=== PATIENT | female | born 1995 | race Caucasian/White ===

== ENCOUNTER → 2023-01-21 | Outpatient (CLI) | payer OTHER, SELFPAY | PROVIDERS: Referring Provider Family Medicine; Visit Provider Family Medicine | DX: Z23 Encounter for immunization (principal) | CPT/HCPCS: 90471; 90686 ==

== ENCOUNTER → 2023-04-24 12:17 | Outpatient (CLI) | payer OTHER, SELFPAY ==
--- NOTE | 2023-04-24 12:21 | DI.US.S_ITS ---
PROCEDURE: US THYROID INDICATIONS: History of Thyroid Cyst TECHNIQUE: Real-time scanning was performed of the thyroid gland, with image documentation. COMPARISON: None. FINDINGS: Right: Thyroid lobe measures 4.8 x 1.0 x 1.8 cm, and is homogeneous in echotexture. Left: Thyroid lobe measures 4.1 x 1.0 x 1.4 cm, and is homogenous in echotexture. Isthmus: 5 cm thick. IMPRESSION: No abnormality is identified on ultrasound. No thyroid cysts. ACR TI-RADS definitions and recommendations: TI-RADS 1 (benign): 0 points. FNA not needed. TI-RADS 2 (not suspicious): 2 points. FNA not needed. TI-RADS 3 (mildly suspicious): 3 points. * FNA if 2.5 cm or larger, follow up if 1.5 cm or larger (at 1, 3, and 5 years). TI-RADS 4 (moderately suspicious): 4-6 points. * FNA if 1.5 cm or larger, follow up if 1 cm or larger (at 1, 2, 3, and 5 years). TI-RADS 5 (highly suspicious): 7 points or more. * FNA if 1 cm or larger, follow up if 0.5 cm or larger (every year for 5 years). Dictated by: Ramez Metzger M.D. on 04/24/2023 at 15:41 Approved by: Ramez Metzger M.D. on 04/24/2023 at 15:43
== END ==
LOC: US 12:19
PROVIDERS: PCP Student in an Organized Health Care Education/Training Program; Referring Provider Specialist; Visit Provider Specialist
DX: Z86.39 Personal history of other endocrine, nutritional and metabolic disease (principal); Z09 Encounter for follow-up examination after completed treatment for conditions other than malignant neoplasm
CPT/HCPCS: 76536

== ENCOUNTER → 2023-04-25 11:44 | Outpatient (CLI) | payer OTHER, SELFPAY ==
[2023-04-25 13:38] LABS: Free T4, Direct Thyroxine 0.95 ng/dL (0.78-2.19)
[2023-04-25 13:52] LABS: Thyroid Stimulating Hormone 2.38 uIU/mL (0.47-4.68)
== END ==
PROVIDERS: PCP Student in an Organized Health Care Education/Training Program; Referring Provider Specialist; Visit Provider Specialist
DX: Z86.39 Personal history of other endocrine, nutritional and metabolic disease (principal)
CPT/HCPCS: 36415; 84439; 84443

== ENCOUNTER → 2023-05-12 07:40 | Outpatient (CLI) | payer OTHER, SELFPAY ==
--- NOTE | 2023-05-12 07:42 | DI.RAD.S_ITS ---
PROCEDURE: XR LUMBAR SPINE MIN 4V INDICATIONS: low back pain TECHNIQUE: 5 views of the lumbar spine were acquired, including bilateral oblique views. COMPARISON: None. FINDINGS: Bones: 5 nonrib-bearing vertebrae are present. Grade 1 anterolisthesis of L4 on L5 by approximately 5 mm. No vertebral body compression fractures. No suspicious bony lesions. No significant degenerative changes. Soft tissues: Overlying bowel gas pattern is normal. No suspicious soft tissue calcifications. Oblique images: Bilateral L4-L5 pars interarticularis defect. IMPRESSION: Bilateral L4-L5 pars interarticularis defect and Grade 1 anterolisthesis of L4 on L5. Approved by: Saira Chapman M.D. on 05/12/2023 at 9:06
== END ==
PROVIDERS: PCP Student in an Organized Health Care Education/Training Program; Referring Provider Anesthesiology; Visit Provider Anesthesiology
DX: M54.16 Radiculopathy, lumbar region (principal); M43.16 Spondylolisthesis, lumbar region; M54.50 Low back pain, unspecified; M54.9 Dorsalgia, unspecified
CPT/HCPCS: 72110; 99214

== ENCOUNTER → 2023-05-20 07:21 | Outpatient (CLI) | payer OTHER, SELFPAY ==
--- NOTE | 2023-05-20 07:22 | DI.MRI.S_ITS ---
PROCEDURE: MR LUMBAR SPINE WO CON INDICATIONS: Pars defect, radiculopathy TECHNIQUE: Noncontrast sagittal T1 spin echo and T2 fast echo, sagittal STIR, and T2 fast spin echo through the lumbar spine. In cases with scoliosis, additional coronal T2 fast spin echo may be performed. COMPARISON: [facility], CR, XR LUMBAR SPINE MIN 4V, 05/12/2023, 7:46. FINDINGS: Image quality: Excellent. Alignment and Curvature: There is trace anterolisthesis of L4 on L5, less prominent when compared to x-ray exam. Bone Marrow: Marrow is of normal overall signal. Moderate reactive endplate changes at L4-5 including Schmorl's node are present. No acute vertebral body compression fractures. Spinal Cord: Conus medullaris terminates at the L1 level. Visualized cord demonstrates normal signal and size. Paraspinous Soft Tissues: No paravertebral masses. Discs: Hben-ak-tzzzedwa desiccation L4-5, L5-S1. T12-L1: No disc bulge, spinal stenosis or foraminal narrowing. L1-L2: No disc bulge, spinal stenosis or foraminal narrowing. Minimal epidural lipomatosis. L2-L3: No disc bulge, spinal stenosis or foraminal narrowing. Minimal epidural lipomatosis. L3-L4: No disc bulge, spinal stenosis or foraminal narrowing. Minimal epidural lipomatosis. L4-L5: Bilateral partially fused pars defect at L4. No spinal stenosis. Minimal bilateral foraminal narrowing. Facet and ligamentum flavum hypertrophy are present. L5-S1: Minimal disc bulge without spinal stenosis. Mild bilateral foraminal narrowing. IMPRESSION: L4 pars defect with minimal anterolisthesis of L4 on L5. Mild bile foraminal narrowing L5-S1, minimal L4-5. Dictated by: Meredith Pinedo M.D. on 05/20/2023 at 10:34 Approved by: Meredith Pinedo M.D. on 05/20/2023 at 10:44
== END ==
LOC: MRI 07:22
PROVIDERS: PCP Student in an Organized Health Care Education/Training Program; Referring Provider Anesthesiology; Visit Provider Anesthesiology
DX: M54.16 Radiculopathy, lumbar region (principal); M54.9 Dorsalgia, unspecified; M43.16 Spondylolisthesis, lumbar region; M48.07 Spinal stenosis, lumbosacral region
CPT/HCPCS: 72148

== ENCOUNTER → 2023-05-27 07:26 | Outpatient (CLI) | payer OTHER, SELFPAY ==
--- NOTE | 2023-05-27 07:27 | DI.US.S_ITS ---
PROCEDURE: US SOFT TISSUE HEAD AND NECK INDICATIONS: NECK LUMP TECHNIQUE: Real-time scanning was performed of the neck region of interest, with image documentation. COMPARISON: None. FINDINGS: At the palpable area of concern, appropriate musculature and fascial planes are maintained. No abnormal vascularity. No evidence of mass lesion. IMPRESSION: Normal soft tissue ultrasound without evidence of mass lesion. Approved by: Diego Arrington M.D. on 05/27/2023 at 18:05
== END ==
LOC: US 07:26
PROVIDERS: PCP Student in an Organized Health Care Education/Training Program; Referring Provider Obstetrics & Gynecology; Visit Provider Obstetrics & Gynecology
DX: Z86.39 Personal history of other endocrine, nutritional and metabolic disease (principal); Z09 Encounter for follow-up examination after completed treatment for conditions other than malignant neoplasm
CPT/HCPCS: 76536

== ENCOUNTER → 2023-06-05 07:28 | Outpatient (CLI) | payer OTHER, SELFPAY ==
[2023-06-05 08:23] LABS: Alanine Aminotransferase 30 IU/L (<35); Albumin 4.2 g/dL (3.5-5.0); Albumin Globulin Ratio 1.5 (1.0-2.8); Alkaline Phosphatase 69 U/L (38-126); Aspartate Aminotransferase 28 IU/L (14-36); Bilirubin Total 0.6 mg/dL (0.2-1.3); Blood Urea Nitrogen 17 mg/dL (7-17); Calcium 9.1 mg/dL (8.4-10.2); Carbon Dioxide 25 mmol/L (22-32); Chloride 107 mmol/L (98-107); Cholesterol 186 mg/dL (140-199); Estimated Glomerular Filt Rate > 60 mL/min (>60); Globulin 2.8 g/dL (1.7-4.1); Glucose 99 mg/dL (70-100); HDL Cholesterol 45 mg/dL (40-60); HEMOLYSIS < 15 (0-50); LDL Cholesterol Calculated 95 mg/dL (<100); Potassium 4.3 mmol/L (3.4-5.1); Sodium 139 mmol/L (137-145); Triglycerides 229 mg/dL (35-150)
[2023-06-05 09:24] LABS: Hemoglobin A1C% w Est Avg Glu 5.1 % (4.0-6.0)
--- NOTE | 2023-06-05 13:17 | DI.US.S_ITS ---
PROCEDURE: US ABD AORTA ANEURYSM SCREEN INDICATIONS: FAMILY HISTORY AAA AT EARLY AGE TECHNIQUE: Real time scanning was performed of the aorta and iliac arteries, with image documentation. COMPARISON: [facility], MR, MR LUMBAR SPINE WO CON, 05/20/2023, 7:36. FINDINGS: Aorta: The proximal aorta is not seen. Mid-aorta measures 1.6 cm. Distal aortic diameter is 1.7 cm. Iliac arteries: Right common iliac artery measures 0.9 cm. Left common iliac artery measures 0.8 cm. IMPRESSION: Negative for aneurysm. Dictated by: Rashad Perales M.D. on 06/05/2023 at 13:57 Approved by: Rashad Perales M.D. on 06/05/2023 at 13:58
== END ==
PROVIDERS: PCP Student in an Organized Health Care Education/Training Program; Referring Provider Student in an Organized Health Care Education/Training Program; Visit Provider Student in an Organized Health Care Education/Training Program
DX: Z13.6 Encounter for screening for cardiovascular disorders (principal); R53.83 Other fatigue; Z82.49 Family history of ischemic heart disease and other diseases of the circulatory system; Z83.438 Family history of other disorder of lipoprotein metabolism and other lipidemia; Z13.1 Encounter for screening for diabetes mellitus
CPT/HCPCS: 36415; 76706; 80053; 80061; 83036

== ENCOUNTER 2023-06-11 10:20 | Outpatient (CLI) | payer OTHER, SELFPAY ==
[2023-06-11] VITALS (8 sets, daily range): BP systolic 134–157; BP diastolic 57–85; PULSE 60–80; RESP 16–20; TEMP 36.8; O2SAT 94–99
--- NOTE | 2023-06-11 11:00 | DI.RAD.S_ITS ---
PROCEDURE: PAIN L/S FACET INJ/BLK 1ST MONA INDICATIONS: BILATERAL L 4-5 PARS DEFECT COMPARISON: None. FINDINGS: Fluoroscopic spot filming was performed to verify placement of spinal needles at the L4-5 level(s), as labeled on the films. Appropriate location(s) of the needle tip(s) was confirmed by injection of iodinated contrast. IMPRESSION: L4-5 needle placement. Dictated by: Meredith Pinedo M.D. on 06/11/2023 at 14:12 Approved by: Meredith Pinedo M.D. on 06/11/2023 at 14:12
[2023-06-11] MEDS: MIDAZOLAM 2 MG/2 ML VIAL IV (11:04)
[2023-06-11] MEDS: DEXAMETHASONE 10 MG/ML VIAL 20 MG INJ (11:07)
[2023-06-11] MEDS: iopamidoL 15 ML VIAL 3 ML INJ (11:08)
[2023-06-11] MEDS: BUPIVACAINE 0.5% (PF) 10 ML VIAL 5 ML INJ (11:08)
--- NOTE | 2023-06-11 11:28 | P.PCN_ITS ---
Date/Time/Diagnoses Date of procedure: 06/11/23 Time of procedure: 11:00 Procedure Notes Physician: Graham Dockery Total Fluoroscopy time (seconds): 9 Total sedation minutes: 10 Procedure in detail & Post-procedure care: Bilateral L4-5 pars defect Injection(s) Indications: Maulik is presenting for treatment of bilateral L4-5 pars defect with low back pain. Preoperative diagnosis: Bilateral L4-5 pars defect Postoperative diagnosis: Same Focused Examination: Ax3 Mood and affect are normal Vital Signs: VSS ASA: 2 Consent: Following review of allergies and potential side effects/complications, including, but not necessarily limited to, infection, allergic reaction, local tissue breakdown, stroke, temporary or permanent nerve injury, paralysis, and possible , the patient indicated that they understood and agreed to proceed.? An informed consent document was signed by the patient, witnessed by a nurse and placed in the patient's chart.? Additionally, other treatment options including medications and physical therapy were reviewed with the patient. All questions were answered. Site was then marked. Anesthesia: After review of previous anesthetic history and IV conscious sedation, the patient was deemed safe to proceed with today's procedure with IV conscious sedation. IV sedation was accomplished with midazolam 2 mg administered by the RN after order by Dr. Dockery. Sedation was titrated to patient comfort during the course of the procedure. Patient remained responsive to all verbal commands. Position: Prone Monitoring: NIBP, Pulse oximetry, 3 lead EKG Needle used: 22 ga, 3.5 in spinal needle x2 Contrast: Isovue 300-M 0.3 mL per site Injectate: Dexamethasone 7.5 mg with 0.5% bupivacaine 2.25 mL per side Technique: The skin was prepped with chloraprep and then draped in a sterile fashion. Time out was performed as per protocol. Oxygen applied via NC. Skin and subcutaneous structures of the needle entry site(s) were then infiltrated with 3 mL of lidocaine 1%. Under AP and lateral fluoroscopic control, the spinal needle was guided into the posterior aspect of the right pars interarticularis. Isoview 300-M was then injected and the spread was consistent with appropriate placement. There was no evidence for intravascular or extracapsular uptake. After negative aspiration, the above-mentioned injectate was then slowly administered and the needle withdrawn. The patient expressed no unusual discomfort or paresthesias during the injection. The above procedure was then repeated on the left side. Band-Aids applied to injection sites. EBL: less than 1 ml Complications: None Post Procedure: Patient was taken to the recovery and monitored. The patient was provided a Pain Log to continue to record the patient's response to the target- specific procedure prior to the patient's follow-up visit with the referring physician. Patient was stable upon discharge. Detailed post procedure instructions were provided. Patient was asked to call in the event of worsening pain, fever, weakness, numbness or bladder or bowel incontinence.
== END 2023-06-11 11:38 | disposition home or self-care (01) ==
LOC: RAD 10:20
PROVIDERS: PCP Student in an Organized Health Care Education/Training Program; Referring Provider Anesthesiology; Visit Provider Anesthesiology
DX: M43.06 Spondylolysis, lumbar region (principal)
CPT/HCPCS: 64493; 99152; J1100; J2250

== ENCOUNTER → 2023-06-13 11:46 | Outpatient (CLI) | payer OTHER, SELFPAY ==
[2023-06-13 13:06] LABS: HCG Quantitative /Beta subunit < 2.4 mIU/mL
== END ==
PROVIDERS: PCP Student in an Organized Health Care Education/Training Program; Referring Provider Student in an Organized Health Care Education/Training Program; Visit Provider Student in an Organized Health Care Education/Training Program
DX: N92.6 Irregular menstruation, unspecified (principal)
CPT/HCPCS: 36415; 84702

== ENCOUNTER → 2023-08-08 08:38 | Outpatient (CLI) | payer OTHER, SELFPAY ==
[2023-08-09 10:45] LABS: Candida species Negative (Negative); Gardnerella vaginalis Negative (Negative); Trichomoas vaginalis Negative (Negative)
== END ==
PROVIDERS: PCP Student in an Organized Health Care Education/Training Program; Visit Provider Specialist
DX: N89.8 Other specified noninflammatory disorders of vagina (principal)
CPT/HCPCS: 87480; 87510; 87660

== ENCOUNTER → 2023-12-31 17:32 | Outpatient (ROUT) | payer OTHER, SELFPAY ==
[2024-01-02 14:12] LABS: Candida species Negative (Negative); Gardnerella vaginalis Negative (Negative); Trichomoas vaginalis Negative (Negative)
== END ==
PROVIDERS: PCP Student in an Organized Health Care Education/Training Program; Visit Provider Obstetrics & Gynecology
DX: N89.8 Other specified noninflammatory disorders of vagina (principal)
CPT/HCPCS: 87480; 87510; 87660